=== PATIENT | female | born 1965 | race Caucasian/White ===

== ENCOUNTER → 2016-08-05 | Outpatient (CLI) | payer BC ==
[2016-01-05 16:55] VITALS: BP 128/78
[~2016-08-05] MED LIST: FLUT9.9S NS; HYOS0.1264 PO; LEVO25TA4 PO; OMEP20CA9 PO
--- NOTE | 2016-08-05 14:37 | CARD ---
APPROVED REPORT INDICATION Dyspnea Reason : Patient complained of shortness of breath PROCEDURE The patient underwent an Exercise Stress Test using the Reginald Protocol. Blood pressure, heart rate, a nd EKG were monitored. An Echocardiogram was performed by cartography technician in four stages in quad fashion. At peak stress four se lected images were obtained and placed side by side with resting images for comparison. STRESS ECHO FINDINGS The resting Echocardiogram showed normal left ventricular contractility with an estimated Ejection Fr action of about 60 %. Normal augmentation of myocardial wall segments using a 16 segment model. Test Type: Exercise Stress Nurse/Tech: Anjelica Saha R.N. Test Indications: dyspnea and fatigue Cardiac History and Allergies: see ehr Medications: see ehr Medical History: see ehr Resting ECG: SR Resting Heart Rate: 64 bpm Resting Blood Pressure: 148/86mmHg Pretest Chest Pain: No chest pain Nurse/Tech Notes S1S2, lungs CTA Stress Symptoms dyspnea, fatigue POST EXERCISE Reason for Termination: Reached target heart rate Target HR: Yes Max HR: 172 bpm 100% of Maximum Predicted HR: 172 bpm Exercise duration: 8.05 min:sec, 3 Stage Exercise capacity: 10.1METs Max Blood Pressure: 201/68mmHg Blood Pressure response to exercise: Normal blood pressure response during stress. Heart Rate response to exercise: wnl Chest Pain: No. Arrhythmia: Yes. pt started having prequent pac's even bigemeny at the beginning of recovery mode w hen HR was around 128 and stopped when HR was back down around 100. ST Change: No. STRESS ECG Stress EKG shows no significant changes. Preliminary Notification Critical Value: No <Conclusion> Normal baseline and stress EKG. Average exercise capacity at 10.1 Mets. Normal BP response. Normal resting wall motion and EF at 60%. Normal wall motion at peak stress. Low risk study.
== END | disposition home or self-care (01) ==
LOC: ECHO 12:56
PROVIDERS: ATTEND Internal Medicine Cardiovascular Disease
DX: I49.9 Cardiac arrhythmia, unspecified (principal); R06.00 Dyspnea, unspecified; R53.83 Other fatigue
CPT/HCPCS: 93017; 93350

== ENCOUNTER → 2017-02-09 | Outpatient (CLI) | payer BC | END | disposition home or self-care (01) | LOC: KCIC US 13:08 | DX: K85.90 Acute pancreatitis without necrosis or infection, unspecified (principal) | CPT/HCPCS: 76700 ==

== ENCOUNTER 2018-11-15 15:24 | Emergency (ER) | payer BC ==
[~2018-11-15] VITALS: Ht 162.6 cm; Wt 97.5 kg
[~2018-11-15 15:24] MED LIST changes: +OMEP20CA10 PO; -OMEP20CA9 PO
--- NOTE | 2018-11-15 15:50 | PHYS DOC ---
Past Medical History Past Medical History: GERD, Hypothyroid, Other Additional Past Medical Histor: IBS Past Surgical History: No Surgical History Smoking: Cigarettes (The patient is a nonsmoker.) Alcohol Use: Occasionally Drug Use: None Adult General Chief Complaint Chief Complaint: CHEST PAIN HPI HPI Patient is a 52-year-old female who presents to the emergency department for evaluation. She states that she went to her [employer] [employer] [facility] for routine visit yesterday, and had a biopsy done. She states that they noticed that her blood pressure was elevated, 198/120, although it did drop to the 170s before she left the office. She has no previous history of hypertension. She states she does not feel anxious at the time. She states that she was instructed to follow-up with her PCP. However her PCP had retired so she was seen by PA at the office today, who felt the patient's pulse was irregular and sent her to the emergency department for evaluation. When asked about chest pain, the patient states that she has had some vague discomfort in her chest on and off for the past many months, which she attributes to GERD, but has not had any exertional chest discomfort, or definite dyspnea on exertion or pleuritic pain. She denies any dizziness or lightheadedness. She denies any chest discomfort at this time. She has not had any palpitations. There are no alleviating, or exacerbating factors to the patient's symptoms. Review of Systems Review of Systems Constitutional: Denies fever or chills [] Eyes: Denies change in visual acuity, redness, or eye pain [] HENT: Denies nasal congestion or sore throat [] Respiratory: Denies cough or shortness of breath [] Cardiovascular: The patient denies any shortness of breath, chest pain, palpit ations, or orthopnea[] GI: Denies abdominal pain, nausea, vomiting, bloody stools or diarrhea [] : Denies dysuria or hematuria [] Musculoskeletal: Denies back pain or joint pain [] Integument: Denies rash or skin lesions [] Neurologic: Denies headache, focal weakness or sensory changes [] Endocrine: Denies polyuria or polydipsia [] All other systems were reviewed and found to be within normal limits, except as documented in this note. Allergies Allergies Allergies Coded Allergies Type Severity Reaction Last Updated Verified bupropion Allergy Severe "MAKES ME CRAZY, HALLUCINATIONS" 01/05/16 Yes Physical Exam Physical Exam PHYSICAL EXAM: CONSTITUTIONAL: Well developed, well nourished HEAD: normocephalic, atraumatic EENT: PERRL, EOMI. Conjunctivae normal color, sclerae non-icteric; moist mucous membranes. NECK: Supple, non-tender; no meningismus. LUNGS: Lungs CTA, breathing even and unlabored. Normal air movement. HEART: Irregularly irregular rhythm, no murmur CHEST: No deformity; non-tender ABDOMEN: The abdomen is soft, and non-tender, no masses or bruits. EXTREM: Normal ROM; no deformity, no calf tenderness. Normal pulses palpable in all extremities. There is no pedal edema. SKIN: No rash; no diaphoresis NEURO: Alert; normal speech and cognition; CN's grossly intact; strength grossly intact without focal deficit. BACK: No CVA TTP. Current Patient Data Vital Signs Vital Signs Date Time Temp Pulse Resp B/P (MAP) Pulse Ox O2 Delivery O2 Flow Rate FiO2 11/15/18 16:00 74 18 153/66 (95) 100 Room Air 11/15/18 15:44 97.9 97.9 Lab Values Laboratory Tests Test 11/15/18 15:53 White Blood Count 6.3 x10^3/uL (4.0-11.0) Red Blood Count 4.45 x10^6/uL (3.50-5.40) Hemoglobin 13.0 g/dL (12.0-15.5) Hematocrit 38.5 % (36.0-47.0) Mean Corpuscular Volume 87 fL (79-100) Mean Corpuscular Hemoglobin 29 pg (25-35) Mean Corpuscular Hemoglobin Concent 34 g/dL (31-37) Red Cell Distribution Width 14.1 % (11.5-14.5) Platelet Count 246 x10^3/uL (140-400) Neutrophils (%) (Auto) 57 % (31-73) Lymphocytes (%) (Auto) 32 % (24-48) Monocytes (%) (Auto) 6 % (0-9) Eosinophils (%) (Auto) 4 % (0-3) H Basophils (%) (Auto) 1 % (0-3) Neutrophils # (Auto) 3.6 x10^3/uL (1.8-7.7) Lymphocytes # (Auto) 2.0 x10^3/uL (1.0-4.8) Monocytes # (Auto) 0.4 x10^3/uL (0.0-1.1) Eosinophils # (Auto) 0.2 x10^3/uL (0.0-0.7) Basophils # (Auto) 0.0 x10^3/uL (0.0-0.2) Prothrombin Time 12.2 SEC (11.7-14.0) Prothrombin Time INR 0.9 (0.8-1.1) Sodium Level 142 mmol/L (136-145) Potassium Level 3.9 mmol/L (3.5-5.1) Chloride Level 105 mmol/L (98-107) Carbon Dioxide Level 26 mmol/L (21-32) Anion Gap 11 (6-14) Blood Urea Nitrogen 13 mg/dL (7-20) Creatinine 1.0 mg/dL (0.6-1.0) Estimated GFR (Cockcroft-Gault) 58.7 BUN/Creatinine Ratio 13 (6-20) Glucose Level 92 mg/dL (70-99) Calcium Level 9.5 mg/dL (8.5-10.1) Magnesium Level 1.9 mg/dL (1.8-2.4) Total Bilirubin 0.7 mg/dL (0.2-1.0) Aspartate Amino Transferase (AST) 21 U/L (15-37) Alanine Aminotransferase (ALT) 22 U/L (14-59) Alkaline Phosphatase 93 U/L (46-116) Troponin I Quantitative < 0.017 ng/mL (0.000-0.055) ON-Fpp-C-Type Natriuretic Peptide 36 pg/mL (0-124) Total Protein 7.4 g/dL (6.4-8.2) Albumin 3.9 g/dL (3.4-5.0) Albumin/Globulin Ratio 1.1 (1.0-1.7) Thyroid Stimulating Hormone (TSH) 1.174 uIU/mL (0.358-3.74) Free Thyroxine 1.19 ng/dL (0.76-1.46) Laboratory Tests 11/15/18 15:53 Laboratory Tests 11/15/18 15:53 EKG EKG []Normal sinus rhythm at a ventricular rate of 81 bpm, with frequent APCs, Left axis deviation, normal intervals. There are no acute ischemic ST/T changes. Radiology/Procedures Radiology/Procedures PROCEDURE: PORTABLE CHEST 1V PORTABLE CHEST 1V History: Hypertension. Chest pain. Comparison: December 30, 2013 Findings: No consolidation or pleural effusion. Normal heart size. Nodular opacity 1.4 cm projecting over the right lung base, may represent nipple shadow. Impression: 1. No acute cardiopulmonary process. 2. Nodular opacity projecting over the right lung base, may represent nipple shadow. Recommend repeat radiographs with nipple markers to confirm. ER physician preliminary repeat chest x-ray interpretation: There is no visualized pulmonary mass, the previously visualized abnormality has moved outside of the lung estevez, consistent with nipple shadows, as evidenced by the markers placed on second x-ray.[] Course & Med Decision Making Course & Med Decision Making Pertinent Labs and Imaging studies reviewed. (See chart for details) [] 4:55 PM: The patient's condition remains a stable. Her blood pressure fluctuates between 140 and 160 systolic. She is asymptomatic at this time. I discussed importance of close outpatient cardiology follow-up, starting the patient on low-dose antihypertensive medication, as well as importance of cardiology follow-up for APCs, which are a symptomatically at this time. Return precautions were discussed in detail. The patient risk stratifies extremely low for coronary disease and is not having any suggestive symptoms at this time. I also discussed the importance of keeping a blood pressure log with the patient, to determine the need for ongoing blood pressure medication treatment. Dragon Disclaimer Dragon Disclaimer This electronic medical record was generated, in whole or in part, using a voice recognition dictation system. Departure Departure Impression: Primary Impression: Hypertension Additional Impression: APC (atrial premature contractions) Disposition: HOME, SELF-CARE Condition: STABLE Referrals: MARK RUFF MD Patient Instructions: Hypertension, Palpitations Scripts Metoprolol Tartrate (METOPROLOL TARTRATE) 25 Mg Tablet 1 TAB PO BID, #60 TAB 1 Refill Prov: BARBARA BLANCO MD 11/15/18 Problem Qualifiers BARBARA BLANCO MD Nov 15, 2018 15:50
[2018-11-15 16:03] LABS: BASO % 1 % (0-3); EOS # 0.2 x10^3/uL (0.0-0.7); EOS % 4 % (0-3); HEMATOCRIT 38.5 % (36.0-47.0); LYMPH % 32 % (24-48); MEAN CORPUSCULAR HEMOGLOBIN 29 pg (25-35); MEAN CORPUSCULAR HGB CONC 34 g/dL (31-37); MEAN CORPUSCULAR VOLUME 87 fL (79-100); MONO # 0.4 x10^3/uL (0.0-1.1); MONO % 6 % (0-9); NEUT # 3.6 x10^3/uL (1.8-7.7); NEUT % 57 % (31-73); PLATELET COUNT 246 x10^3/uL (140-400); RED BLOOD COUNT 4.45 x10^6/uL (3.50-5.40); RED CELL DISTRIBUTION WIDTH 14.1 % (11.5-14.5); WHITE BLOOD COUNT 6.3 x10^3/uL (4.0-11.0)
--- NOTE | 2018-11-15 16:10 | RAD ---
PORTABLE CHEST 1V History: Hypertension. Chest pain. Comparison: December 30, 2013 Findings: No consolidation or pleural effusion. Normal heart size. Nodular opacity 1.4 cm projecting over the right lung base, may represent nipple shadow. Impression: 1. No acute cardiopulmonary process. 2. Nodular opacity projecting over the right lung base, may represent nipple shadow. Recommend repeat radiographs with nipple markers to confirm. Electronically signed by: Oscar Abdalla DO (11/15/2018 4:07 PM) [facility]
[2018-11-15 16:13] LABS: CALCIUM 9.5 mg/dL (8.5-10.1); GFR 58.7; POTASSIUM 3.9 mmol/L (3.5-5.1)
[2018-11-15 16:15] LABS: PROTHROMBIN TIME PATIENT 12.2 SEC (11.7-14.0)
[2018-11-15 16:18] LABS: ALBUMIN 3.9 g/dL (3.4-5.0); ALBUMIN/GLOBULIN RATIO 1.1 (1.0-1.7); MAGNESIUM 1.9 mg/dL (1.8-2.4); TOTAL BILIRUBIN 0.7 mg/dL (0.2-1.0); TOTAL PROTEIN 7.4 g/dL (6.4-8.2)
--- NOTE | 2018-11-15 16:23 | EKG ---
[facility] [address] [place] [address] Test Date: 2018-11-15 Test Time: 15:38:05 Pat Name: CHEY TORRESRONN Department: Room: Gender: F Director Of Workforce Development: : 1965 Requested By: BARBARA BLANCO Order Number: [id number] Reading MD: Jerrod Cantu MD Measurements Intervals [place] Rate: 81 P: NM: QRS: -26 QRSD: 100 T: 24 QT: 388 QTc: 456 Interpretive Statements SR PAC'S Electronically Signed On 11-25-2018 11:54:36 CDT by Jerrod Cantu MD
[2018-11-15 16:30] VITALS: BP 162/79
[2018-11-15] MEDS ORDERED: METO25TA4 PO (16:59)
--- NOTE | 2018-11-15 17:12 | RAD ---
CHEST AP ONLY 3:51 PM performed with a right nipple marker and a left nipple marker. Clinical indications: Abnormal chest x-ray. Possible nipple shadow versus lung nodule. Previous study performed on same day at 3:50 PM. FINDINGS/ IMPRESSION: The previously seen right lung base nodule corresponds to the right nipple. Electronically signed by: Jose Castillo MD (11/15/2018 5:09 PM) [id number]
== END 2018-11-15 17:18 | disposition home or self-care (01) ==
LOC: ER 15:24
DX: I10 Essential (primary) hypertension (principal); I49.1 Atrial premature depolarization; E03.9 Hypothyroidism, unspecified; K58.9 Irritable bowel syndrome, unspecified; Z88.8 Allergy status to other drugs, medicaments and biological substances
CPT/HCPCS: 36415; 71045; 80053; 83735; 83880; 84439; 84443; 84484; 85025; 85610; 93005; 99285-25

== ENCOUNTER → 2019-10-17 | Outpatient (CLI) | payer BC ==
[~2019-10-17] MED LIST changes: +METO25TA4 PO; -OMEP20CA10 PO; +OMEP20CA16 PO
--- NOTE | 2019-10-17 13:42 | CARD ---
MR#: [id number] Date of Study: 10/17/2019 Ordering Physician: IVORY CANTU, Referring Physician: IVORY CANTU, Tech: Harleen Ornelas APPROVED REPORT EXAM: Two-dimensional and M-mode echocardiogram with Doppler and color Doppler. Other Information Quality : AverageHR: 63bpm Technically limited study due to Asthma INDICATION Hypertension/HCVD Asthma 2D DIMENSIONS RVDd3.2 (2.9-3.5cm)Left Atrium(2D)3.6 (1.6-4.0cm) IVSd0.8 (0.7-1.1cm)Aortic Root(2D)3.1 (2.0-3.7cm) LVDd5.1 (3.9-5.9cm)LVOT Diameter2.2 (1.8-2.4cm) PWd1.0 (0.7-1.1cm)LVDs3.3 (2.5-4.0cm) FS (%) 35.0 %SV80.6 ml LVEF(%)63.9 (>50%) Aortic Valve AoV Peak Chris.132.0cm/sAoV VTI30.8cm AO Peak GR.7.0mmHgLVOT Peak Chris.108.5cm/s LVOT VTI 25.07cmAO Mean GR.4mmHg MARIAN (VMAX)2.24bg7DLL (VTI)3.00cm2 Mitral Valve MV E Nkstszjt32.2cm/sMV DECEL THQC214au MV A Qitgccie89.6cm/sMV E Mean Gr.2mmHg MV MZH68vyP/A Ratio1.4 MVA (PHT)3.75cm2 TDI E/Lateral E'7.9E/Medial E'9.9 Pulmonary Valve PV Peak Gknardkj56.7cm/sPV Peak Grad.3mmHg Tricuspid Valve TR P. Lalbukdh973zm/sRAP UDXKBJAN7ejVv TR Peak Gr.54jcVtVGLJ84qvBs Pulmonary Vein D2 Sosaujjs75.0cm/sPVa dlpvhxio195tbqz LEFT VENTRICLE The left ventricle is normal size. There is normal left ventricular wall thickness. The left ventricu lar systolic function is normal and the ejection fraction is within normal range. The Ejection Fracti on is 50-55%. There is normal LV segmental wall motion. Transmitral Doppler flow pattern is Grade II- pseudonormal filling dynamics. RIGHT VENTRICLE The right ventricle is normal size. There is normal right ventricular wall thickness. The right ventr icular systolic function is normal. ATRIA The left atrium size is normal. The right atrium size is normal. The interatrial septum is intact wit h no evidence for an atrial septal defect or patent foramen ovale as noted on 2-D or Doppler imaging. AORTIC VALVE The aortic valve is normal in structure and function. Doppler and Color Flow revealed no significant aortic regurgitation. There is no significant aortic valvular stenosis. Calculated aortic valve area is 3.41 cm2 with maximum pressure gradient of 8 mmHg and mean pressure gradient of 4 mmHg. MITRAL VALVE The mitral valve is normal in structure and function. There is no evidence of mitral valve prolapse. There is no mitral valve stenosis with a mean gradient of 1.9 mmHg. Doppler and Color Flow revealed n o mitral valve regurgitation noted. TRICUSPID VALVE The tricuspid valve is normal in structure and function. Doppler and Color Flow revealed trace tricus pid regurgitation with an estimated PAP of 28 mmHg. There is no tricuspid valve stenosis. PULMONIC VALVE The pulmonic valve is not well visualized. Doppler and Color Flow revealed trace pulmonic valvular re gurgitation. There is no pulmonic valvular stenosis. GREAT VESSELS The aortic root is normal in size. The ascending aorta is normal in size. The IVC is normal in size a nd collapses >50% with inspiration. PERICARDIAL EFFUSION There is no evidence of significant pericardial effusion. Critical Notification Critical Value: No <Conclusion> The left ventricular systolic function is normal and the ejection fraction is within normal range. Th e Ejection Fraction is 50-55%. There is normal LV segmental wall motion. Signed by : Ivory Cantu, Electronically Approved : 10/17/2019 13:42:03
== END | disposition home or self-care (01) ==
LOC: ECHO 08:51
PROVIDERS: ATTEND Internal Medicine Cardiovascular Disease
DX: I10 Essential (primary) hypertension (principal)
CPT/HCPCS: 93306

== ENCOUNTER → 2020-05-27 | Outpatient (CLI) | payer BC ==
--- NOTE | 2020-05-27 11:30 | KCIC ---
EXAM: Brain MRI without contrast. HISTORY: Headaches. TECHNIQUE: Multiplanar, multisequence magnetic resonance imaging of the brain was performed without c ontrast. COMPARISON: None. FINDINGS: There is no restricted diffusion to suggest acute or subacute infarction. There is no susce ptibility effect to suggest hemorrhage. There is no mass effect or midline shift. There is no hydroce phalus. No suspicious white matter lesion is seen. The orbits, paranasal sinuses mastoid air cells ar e unremarkable. There are normal flow voids within the cerebral vessels. There is no suspicious juancho rial lesion. IMPRESSION: No acute intracranial finding. Electronically signed by: Mandy Whitaker MD (05/27/2020 11:28 AM) [id number]
== END ==
LOC: KCIC MRI 10:05
PROVIDERS: ATTEND Family Medicine
DX: G44.52 New daily persistent headache (NDPH) (principal)
CPT/HCPCS: 70551

== ENCOUNTER → 2020-09-09 | Outpatient (CLI) | payer BC ==
--- NOTE | 2020-09-09 18:45 | RAD ---
MR#: [id number] Date of Study: 09/09/2020 Ordering Physician: IVORY CANTU, Referring Physician: IRIS SANDOVAL Tech: RT Sahra (R) (N) APPROVED REPORT Test Type: Exercise Stress Nurse/Tech: Vanessa Chu RN Test Indications: atypical chest pain Cardiac History: Family history Medications: See Electronic Medical Record Medical History: See Electronic Medical Record Resting ECG: SB with BBB Resting Heart Rate: 52 bpm Resting Blood Pressure: 135/80mmHg Pretest Chest Pain: No chest pain Nurse/Tech Notes S1,S2 and lungs clear to auscultation. Consent: The procedure was explained to the patient in lay terms. Informed consent was witnessed. Geovany eout was entered into [employer]. History and Stress Test performed by RT Sahra (R) (N) Stress Symptoms No chest pain or symptoms. POST EXERCISE Reason for Termination: Reached target heart rate, Fatigue Target HR: Yes Max HR: 145 bpm 102% of Maximum Predicted HR: 142 bpm Exercise duration: 8:30 min:sec, 3 Stage Exercise capacity: 10.0METs Max Blood Pressure: 160/71mmHg Blood Pressure response to exercise: Normal blood pressure response during stress. Heart Rate response to exercise: WNL Chest Pain: No. Arrhythmia: No. ST Change: No. INTERPRETATION Stress EKG Conclusion: No evidence of strses induced EKG changes. Imaging Protocol IMAGE PROTOCOL: Rest Tc-99m/stress Tc-99m 1 day Rest: Stress: Viability: Radiopharm.Tc99m LqkxmzzdcCx42c Sestamibi Dose10.3mCi 33mCi Duration 13min. 13min. Img Date 09/09/2020 09/09/2020 Inj-Img Dnwc13bzz. 60min. Rest Admin Site:IV - Right HandAdministrator:RT Cheryl (R)(N) Stress Admin Site: IV - Right HandAdministrator: MARYANNE Madrid STRESS DATA End Diast. Vol.98.0mlLVEDV index BSA51.0ml End Syst. Vol.22.0mlLVESV index BSA11.0ml Myocardial Mnkl567.0gEject. Wgpvtvnp31.0% Stress Scores Regional WT0.00Summed WT0.00 Regional WM0.00Summed WM0.00 The rest and stress images show normal perfusion, normal contraction and thickening. LV Perf. Quant 17 Seg. SSS1.00 17 Seg. SRS1.00 17 Seg. SDS1.00 Stress Defect Extent (% LAD)0.00Rest Defect Extent (% LAD)0.00Rev. Defect Extent (% LAD)0.00 Stress Defect Extent (% LCX) 2.50Rest Defect Extent (% LCX)0.00Rev. Defect Extent (% LCX)2.50 Stress Defect Extent (% RCA)0.00Rest Defect Extent (% RCA)0.00Rev. Defect Extent (% RCA)0.00 Stress Defect Extent (% MISTY)0.40Rest Defect Extent (% MISTY)0.00Rev. Defect Extent (% MISTY)0.40 Other Information Quality:Average Risk Assessment: Low Risk Conclusion 1. No evidence of EKG changes with stress testing. Good exercise capacity with 10 Mets achieved. 2. Normal perfusion at stress/rest. 3. Low risk study. 4. EF > 60%. Signed by : Ivory Cantu, Electronically Approved : 09/09/2020 18:44:47
== END ==
LOC: NM 08:21
PROVIDERS: ATTEND Internal Medicine Cardiovascular Disease
DX: R07.89 Other chest pain (principal)
CPT/HCPCS: 78452; 93017; A9500

== ENCOUNTER 2020-09-27 21:48 | Emergency (ER) | payer BC ==
[~2020-09-27] VITALS: Ht 162.6 cm; Wt 81.8 kg
[2020-09-27 23:09] VITALS: BP 115/72
--- NOTE | 2020-09-28 02:50 | RAD ---
LEFT ELBOW AP LATERAL AND OBLIQUE Clinical Indication: Reason: pain s/p fall / Spl. Instructions: / History: Comparison: None. Findings: There is no acute fracture or dislocation. The mineralization is normal. Joint spaces are maintained. No evidence of joint effusion. There is no radiopaque foreign body. There is dorsal soft tissue swel ling and moderate subcutaneous induration by the proximal ulna. IMPRESSION: No acute fracture or dislocation. Electronically signed by: Rickie Esposito MD (09/28/2020 2:48 AM) [facility]
[2020-09-28] MEDS ORDERED: TRAM50TA PO (02:51)
--- NOTE | 2020-09-28 02:54 | PHYS DOC ---
Past Medical History Past Medical History: GERD, Hypothyroid, Other Additional Past Medical Histor: IBS, acid reflux Past Surgical History: No Surgical History Smoking Status: Never Smoker Alcohol Use: Occasionally Drug Use: None General Adult EDM: Chief Complaint: MECHANICAL FALL HPI: HPI: Patient is a 54 year old [f__sex] who presents with [] Review of Systems: Review of Systems: Constitutional: Denies fever or chills. [] Eyes: Denies change in visual acuity. [] HENT: Denies nasal congestion or sore throat. [] Respiratory: Denies cough or shortness of breath. [] Cardiovascular: Denies chest pain or edema. [] GI: Denies abdominal pain, nausea, vomiting, bloody stools or diarrhea. [] : Denies dysuria. [] Musculoskeletal: Denies back pain or joint pain. [] Integument: Denies rash. [] Neurologic: Denies headache, focal weakness or sensory changes. [] Endocrine: Denies polyuria or polydipsia. [] Lymphatic: Denies swollen glands. [] Psychiatric: Denies depression or anxiety. [] Heart Score: Risk Factors: Risk Factors: DM, Current or recent (<one month) smoker, HTN, HLP, family history of CAD, obesity. Risk Scores: Score 0 - 3: 2.5% MACE over next 6 weeks - Discharge Home Score 4 - 6: 20.3% MACE over next 6 weeks - Admit for Clinical Observation Score 7 - 10: 72.7% MACE over next 6 weeks - Early Invasive Strategies Allergies: Allergies: Allergies Coded Allergies Type Severity Reaction Last Updated Verified bupropion Allergy Severe "MAKES ME CRAZY, HALLUCINATIONS" 01/05/16 Yes Physical Exam: PE: Constitutional: Well developed, well nourished, no acute distress, non-toxic appearance. [] HENT: Normocephalic, atraumatic, bilateral external ears normal, oropharynx moist, no oral exudates, nose normal. [] Eyes: PERRLA, EOMI, conjunctiva normal, no discharge. [] Neck: Normal range of motion, no tenderness, supple, no stridor. [] Cardiovascular:Heart rate regular rhythm, no murmur [] Lungs & Thorax: Bilateral breath sounds clear to auscultation [] Abdomen: Bowel sounds normal, soft, no tenderness, no masses, no pulsatile masses. [] Skin: Warm, dry, no erythema, no rash. [] Back: No tenderness, no CVA tenderness. [] Extremities: No tenderness, no cyanosis, no clubbing, ROM intact, no edema. [] Neurologic: Alert and oriented X 3, normal motor function, normal sensory function, no focal deficits noted. [] Psychologic: Affect normal, judgement normal, mood normal. [] Current Patient Data: Vital Signs: Vital Signs Date Time Temp Pulse Resp B/P (MAP) Pulse Ox O2 Delivery O2 Flow Rate FiO2 09/27/20 23:09 61 115/72 (106) 97 Room Air EKG: EKG: [] Radiology/Procedures: Radiology/Procedures: PROCEDURE: ELBOW LEFT 3V LEFT ELBOW AP LATERAL AND OBLIQUE Clinical Indication: Reason: pain s/p fall / Spl. Instructions: / History: Comparison: None. Findings: There is no acute fracture or dislocation. The mineralization is normal. Joint spaces are maintained. No evidence of joint effusion. There is no radiopaque foreign body. There is dorsal soft tissue swelling and moderate subcutaneous induration by the proximal ulna. IMPRESSION: No acute fracture or dislocation. Electronically signed by: Rickie Esposito MD (09/28/2020 2:48 AM) [facility] Course & Med Decision Making: Course & Med Decision Making Pertinent Labs and Imaging studies reviewed. (See chart for details) [] Dragon Disclaimer: Dragon Disclaimer: This electronic medical record was generated, in whole or in part, using a voice recognition dictation system. Departure Departure Impression: Primary Impression: Fall Qualified Codes: W19.XXXA - Unspecified fall, initial encounter Additional Impressions: Elbow injury Qualified Codes: S59.902A - Unspecified injury of left elbow, initial encounter Back pain Qualified Codes: M54.5 - Low back pain Referrals: MANNY CHAVEZ MD (PCP) EMIGDIO AGUILAR Jr. DO Patient Instructions: Arm Sling Use, Mytb-pt-Dlad, Back Pain, Adult, Easy-to-R ead, Contusion, Jmub-vy-Hjjs, Elastic Bandage and RICE, Elbow Injury Scripts Tramadol Hcl (TRAMADOL HCL) 50 Mg Tablet 50 MG PO Q6HRS PRN for PAIN, #14 TAB Prov: KELLEE MONK DO 09/28/20 KELLEE MONK DO Sep 28, 2020 02:54
--- NOTE | 2020-09-28 02:55 | RAD ---
XR LUMBAR SPINE 2-3V Clinical Indication: Reason: pain s/p fall / Spl. Instructions: / History: Comparison: None. Findings: There is minimal left convexity lumbar scoliosis. The sacroiliac joints are symmetric. The sacral arc uate lines are smooth. IUD is seen in the pelvis. The vertebral body height and alignment are maintai kristan. No significant disc space narrowing is identified. The mineralization is normal. Scattered stool in the colon. IMPRESSION: No acute fracture or malalignment. Electronically signed by: Rickie Esposito MD (09/28/2020 2:52 AM) [facility]
[2020-09-28] MEDS ORDERED: traMADol 50 MG TABLET PO ONE (03:00)
== END 2020-09-28 03:25 | disposition home or self-care (01) ==
LOC: ER 21:48
DX: S59.902A Unspecified injury of left elbow, initial encounter (principal); E03.9 Hypothyroidism, unspecified; M54.5 Low back pain; K21.9 Gastro-esophageal reflux disease without esophagitis; K58.9 Irritable bowel syndrome, unspecified; Z88.8 Allergy status to other drugs, medicaments and biological substances; W18.39XA Other fall on same level, initial encounter; Y93.89 Activity, other specified; Y92.89 Other specified places as the place of occurrence of the external cause; Y99.8 Other external cause status
CPT/HCPCS: 72100; 73080; 99284; A4565

== ENCOUNTER → 2021-05-26 | Outpatient (CLI) | payer BC ==
[~2021-05-26] VITALS: Ht 193 cm; Wt 81.6 kg
[~2021-05-26] MED LIST changes: +SINCALIDE 1.6 MCG in IV NORMAL SALINE 50ML 30 ML IV ONE; +TRAM50TA PO
--- NOTE | 2021-05-26 09:23 | RAD ---
EXAMINATION: US ABDOMEN LIMITED 05/26/2021 8:44 AM INDICATION: Right upper quadrant pain TECHNIQUE: Barba scale and color Doppler ultrasound images of the right upper quadrant were obtained. COMPARISON: Abdominal ultrasound 02/09/2017. FINDINGS: Liver: The liver is normal in size measuring 15 cm in length. Normal hepatic echogenicity. No focal liver lesion. Gallbladder: The gallbladder is normal in caliber. No cholelithiasis or sludge. The gallbladder wa ll is normal in thickness measuring 2 mm. Bile ducts: The common bile duct is normal measuring 6 mm. No intrahepatic biliary duct dilatation. Right kidney: Mildly limited evaluation of the right kidney due to bowel gas. The right kidney measur es 11.7 x 4.8 x 5.5 cm. Grossly normal cortical thickness and echogenicity. No hydronephrosis. Other: Inferior vena cava is patent at the liver. The pancreas is normal where visualized. IMPRESSION: Normal right upper quadrant ultrasound. Electronically signed by: Yelena Stover MD (05/26/2021 9:21 AM) [id number]
--- NOTE | 2021-05-26 13:46 | RAD ---
HEPATOBILIARY SCAN WITH EJECTION FRACTION History: Reason: RIGHT UPPER QUANDRANT ABDOMEN PAIN for one month: Procedure: Serial static images are obtained of the liver and biliary system in the frontal projectio n following IV administration of 5.4 mCi of Technetium 99m Choletec. After filling of the gallbladd er, 1.6 mcg of Sincalide were infused over 30 minutes and dynamic imaging continued over this period. The gallbladder ejection fraction was calculated. Findings: There is prompt hepatic clearance of tracer from the blood pool. There is homogeneous distribution th roughout the liver. There is normal filling of the gallbladder and normal emptying into the biliary s ystem and small bowel. The gallbladder ejection fraction measures 86% (normal gallbladder EF is 35% o r greater). IMPRESSION: 1. The cystic duct and common bile duct are patent. Negative for acute cholecystitis. 2. The gallbladder ejection fraction is normal at 86 percent. Electronically signed by: Renaldo Regan MD (05/26/2021 1:43 PM) [id number]
== END ==
LOC: US 08:45
PROVIDERS: ATTEND Internal Medicine Gastroenterology
DX: R10.11 Right upper quadrant pain (principal)
CPT/HCPCS: 76705; 78227; A9537; J2805

== ENCOUNTER 2021-07-01 08:04 | Day surgery (SDC) | payer BC ==
[~2021-07-01] VITALS: Ht 160 cm; Wt 80.0 kg
[~2021-07-01 08:04] MED LIST changes: +ACET325T9 PO; +DIPH25CA58 PO; +ESCITALOPRAM OX20 MG PO; +FEXO60TA25 PO; +HYDROmorphone 2 MG/ML INJ. IVP PRN; +LEVO1IUD3 IY; +MORPHINE SULFATE 2 MG/ML INJ. IVP PRN; +PROCHLORPERAZINE 10 MG/2 ML VIAL. IVP PRN; -SINCALIDE 1.6 MCG in IV NORMAL SALINE 50ML 30 ML IV ONE; +fentaNYL PF VIAL 100 MCG/2 ML VIAL IVP PRN
[2021-07-01 08:31] VITALS: BP 119/58
[2021-07-01] MEDS: IV RINGERS,LACTATED 1000ML 1,000 ML IV SCH ×3 (08:46→08:58)
[2021-07-01] MEDS ORDERED: SCOPOLAMINE 1.5MG PATCH. TD ONE (09:00)
[2021-07-01] MEDS ORDERED: BUPIVACAINE-EPI 0.5% 30 ML VIAL KIT. ONE (09:01)
[2021-07-01] MEDS ORDERED: IOHEXOL 300 MG/ML 50 ML VIAL. ONE (09:01)
[2021-07-01] MEDS ORDERED: SURGICEL HEMOSTAT 4X8 EACH. ONE (09:01)
[2021-07-01] MEDS ORDERED: SEVOFLURANE > 120 MINUTES. IH ONE (09:02)
[2021-07-01] MEDS ORDERED: PROPOFOL 10 MG/ML (20ML) VIAL. IV ONE (09:02)
[2021-07-01] MEDS ORDERED: GLYCOPYRROLATE 1 MG/5 ML VIAL. ONE (09:03)
[2021-07-01] MEDS ORDERED: MIDAZOLAM HCL/PF 2 MG/2 ML VIAL. ONE (09:03)
[2021-07-01] MEDS ORDERED: fentaNYL PF VIAL 100 MCG/2 ML VIAL ONE (09:03)
[2021-07-01] MEDS ORDERED: ROCURONIUM 50 MG/5 ML VIAL. ONE (09:03)
[2021-07-01] MEDS ORDERED: NEOSTIGMINE METHYLSULFATE 5 MG/5 ML SYRINGE. ONE (09:03)
[2021-07-01] MEDS ORDERED: PHENYLEPHRINE in 0.9% NACL PF 1 MG/10 ML SYRINGE. IV ONE (09:34)
[2021-07-01] MEDS ORDERED: ePHEDrine PF IN SALINE 50 MG/10 ML SYRINGE. IV ONE (09:34)
[2021-07-01] MEDS ORDERED: BUPIVACAINE-EPI 0.5% 30 ML VIAL KIT. INJ ONE (09:38)
--- NOTE | 2021-07-01 10:11 | RAD ---
DG INTRAOPERATIVE CHOLANGIOGRAM History: Reason: CHOLANGIOGRAMS IN OR WITH C-ARM, pain Comparison: None. Technique/findings: Fluoroscopy provided intraoperatively for cholangiogram after cholecystectomy. Opacification of commo n bile duct and intrahepatic ducts. Contrast opacifies the small bowel. See procedure note for further details. Fluoroscopy time: 27 seconds Number of fluoroscopic images: 4 Impression: 1. Fluoroscopy provided during intraoperative cholangiogram. No evidence of common bile duct obstruc tion. Electronically signed by: Oscar Abdalla DO (07/01/2021 10:09 AM) [id number]
--- NOTE | 2021-07-01 10:23 | PDOC4 ---
Operative Note Operative Note Operative Note: Preoperative Diagnosis: Biliary dyskinesia Postoperative Diagnosis: Same Procedure: Laparoscopic cholecystectomy with intraoperative cholangiogram Surgeons: Diaz Desktop Administrator: Liv Paez MS 3 Anesthesia: Gen. Estimated Blood Loss: 10 mL Specimen: Gallbladder to pathology Drains: None Complications: None Indications: The patient is a 55-year-old female was referred out of concern for possible biliary dyskinesia. Surgical treatment was offered by means of a laparoscopic cholecystectomy. The risks of surgery were discussed which include bleeding, infection, bile duct injury, bile leak, pain, the potential for additional surgeries or procedures. The patient understands and would like to proceed. Description: The patient was taken to the operating room and laid supine on the operating table. General anesthesia was performed. The abdomen was prepped with ChloraPrep and draped in a standard surgical fashion. A small infraumbilical incision was made with a scalpel. The Veress needle was then inserted and a pneumoperitoneum was then created. A 5 mm trocar was then inserted and the laparoscope was introduced. In the upper midabdomen a 5 mm trocar was inserted and in the right upper quadrant two 2.3 mm mini lap graspers were inserted. The gallbladder was retracted cephalad. The cystic duct was dissected free from surrounding tissues. One clip was placed on the duct near the gallbladder junction. An opening was made in the duct and a cholangiocatheter placed within and secured with a clip. Using contrast dye and fluoroscopy an intraoperative cholangiogram was performed that appeared unremarkable. The clip and catheter were then withdrawn. Three clips were placed on the cystic duct and it was divided. The cystic artery was then identified, dissected free, doubly clipped and divided as well. The gallbladder was then mobilized away from the liver with cautery. The umbilical 5 millimeter trocar was exchanged for an 11 millimeter trocar. The gallbladder was then placed in an endoscopic bag and extracted at the umbilical trocar site. The fascia there was closed with an 0 Vicryl suture and infiltrated with 0.5% marcaine. All blood and irrigation fluid was suctioned and hemostasis was good. The remaining ports were removed and the pneumoperitoneum was relieved. The skin incisions were closed using 4-0 Monocryl suture. Steri-Strips and dressings were then applied. The patient tolerated the procedure well and was sent to the recovery room in stable condition. At the end of the case all counts were correct. MOI QUINTANA MD July 01, 2021 10:22
[2021-07-01] MEDS ORDERED: OXYC-325 PO (10:24)
--- NOTE | 2021-07-01 10:26 | DISCH ---
DISCHARGE INSTRUCTIONS Condition on Discharge Condition on Discharge: Stable Activity After Discharge Activity Instructions for Disc: Other, see below (No lifting over 20 lbs X 2 weeks, no driving while taking pain meds) Diet after Discharge Diet after Discharge: Regular Wound Incision Care Wound/Incision Care: Other, see below (may remove bandaids tomorrow and shower, steristrips will fall off on their own) Follow-Up Follow up with: Dr Quintana in 2 weeks in office, call for appointment [phone] MOI QUINTANA MD July 01, 2021 10:26
[2021-07-01] MEDS ORDERED: oxyCODONE/APAP 5/325 1 TAB TABLET ONE (11:18)
[2021-07-01 11:30] VITALS: BP 119/66
[2021-07-01] MEDS ORDERED: oxyCODONE/APAP 5/325 1 TAB TABLET PO ONE (11:30)
== END 2021-07-01 11:54 | disposition home or self-care (01) ==
LOC: SURG 08:04
PROVIDERS: ATTEND Surgery
DX: K82.8 Other specified diseases of gallbladder (principal); I10 Essential (primary) hypertension; G47.30 Sleep apnea, unspecified; K21.9 Gastro-esophageal reflux disease without esophagitis; E03.9 Hypothyroidism, unspecified; F41.9 Anxiety disorder, unspecified; Z87.891 Personal history of nicotine dependence; Z79.899 Other long term (current) drug therapy; Z98.890 Other specified postprocedural states; Z88.8 Allergy status to other drugs, medicaments and biological substances
CPT/HCPCS: 47563; 74300; 81025; 88304; A4213; A4314; A4930; C1887; J0690; J2250; J2370; J2704; J2710; J3010; J3490; Q9967; A4657